=== PATIENT | male | born 1970 | race Two or more races ===

== ENCOUNTER 2025-05-23 23:08 | Emergency (ER) | payer OTHER, SELFPAY ==
[2025-05-23 23:13] VITALS: BP 187/86; PULSE 109; RESP 17; TEMP 36.9; O2SAT 98
[2025-05-23 23:14] VITALS: BMI 27.0
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
[2025-05-23 23:24] VITALS: PULSE 98; O2SAT 95
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
[2025-05-24] MEDS: HYDROcodone/APAP 5/325 TABLET 1 TAB PO (00:15)
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
[2025-05-24] MEDS: KETOROLAC INJ 30 MG/ML VIAL IM (02:38)
[2025-05-24 02:42] VITALS: BP 162/72; PULSE 99; RESP 18; TEMP 36.8; O2SAT 98
== END 2025-05-24 02:43 | disposition home or self-care (01) ==
PROVIDERS: Emergency Provider Emergency Medicine
DX: S16.1XXA Strain of muscle, fascia and tendon at neck level, initial encounter (principal); S63.502A Unspecified sprain of left wrist, initial encounter; R07.9 Chest pain, unspecified; R00.0 Tachycardia, unspecified; I10 Essential (primary) hypertension; E11.9 Type 2 diabetes mellitus without complications; E78.00 Pure hypercholesterolemia, unspecified; V89.2XXA Person injured in unspecified motor-vehicle accident, traffic, initial encounter; Y92.410 Unspecified street and highway as the place of occurrence of the external cause
CPT/HCPCS: 70450; 71250; 72125; 73090; 73100; 74176; 96372; 99284; J1885; A9270